=== PATIENT | male | born 1965 | race Caucasian/White ===

== ENCOUNTER 2021-10-28 09:05 | Outpatient (CLI) | payer BC, SELFPAY ==
[2021-10-28 20:02] LABS: Alanine Aminotransferase 28 U/L (6-50); Albumin Level 4.4 g/dL (3.5-5.1); Alkaline Phosphatase 60 U/L (38-126); Anion Gap 9 mmol/L (8-16); Aspartate Amino Transferase 40 U/L (17-59); Bilirubin,Total 0.8 mg/dL (0.2-1.3); Blood Urea Nitrogen 25 mg/dL (9-20); Calcium 9.1 mg/dL (8.4-10.2); Carbon Dioxide 29 mmol/L (22-30); Chloride 99 mmol/L (98-107); Cholesterol 160 mg/dL (0-200); Estimated Glomerular Filt Rate > 60; Glucose 102 mg/dL (65-110); HDL Direct 40 mg/dL; Potassium 4.1 mmol/L (3.4-5.0); Sodium 137 mmol/L (137-145); Triglycerides 92 mg/dL (<150)
[2021-10-28 20:13] LABS: LDL Cholesterol Direct 86 mg/dL
[2021-10-28 20:50] LABS: Hemoglobin A1C 5.3 % (<5.7)
== END 2021-10-28 09:06 | disposition home or self-care (01) ==
LOC: ANHGOSHLAB 09:08
PROVIDERS: PCP Family Medicine; Visit Provider Family Medicine
DX: Z13.220 Encounter for screening for lipoid disorders (principal); I10 Essential (primary) hypertension; E66.01 Morbid (severe) obesity due to excess calories
CPT/HCPCS: 36415; 80053; 80061; 83036

== ENCOUNTER 2022-05-05 09:57 | Outpatient (CLI) | payer BC, SELFPAY ==
[2022-05-05 19:42] LABS: Alanine Aminotransferase 34 U/L (6-50); Albumin Level 4.6 g/dL (3.5-5.1); Alkaline Phosphatase 74 U/L (38-126); Anion Gap 6 mmol/L (8-16); Aspartate Amino Transferase 39 U/L (17-59); Bilirubin,Total 0.9 mg/dL (0.2-1.3); Blood Urea Nitrogen 18 mg/dL (9-20); Calcium 8.8 mg/dL (8.4-10.2); Carbon Dioxide 27 mmol/L (22-30); Chloride 105 mmol/L (98-107); Cholesterol 174 mg/dL (0-200); Estimated Glomerular Filt Rate > 60; Glucose 104 mg/dL (65-110); HDL Direct 40 mg/dL; Potassium 4.1 mmol/L (3.4-5.0); Sodium 138 mmol/L (137-145); Triglycerides 158 mg/dL (<150)
[2022-05-05 19:52] LABS: LDL Cholesterol Direct 86 mg/dL
[2022-05-05 20:10] LABS: Prostate Specific Antigen 0.8 ng/mL (< OR = 4.0)
[2022-05-11 16:18] LABS: Testosterone Free 77.2 pg/mL (35.0-155.0); Testosterone Total 449 ng/dL (250-1100)
== END 2022-05-05 09:58 | disposition home or self-care (01) ==
LOC: ANHGOSHLAB 09:59
PROVIDERS: PCP Family Medicine; Visit Provider Family Medicine
DX: R53.83 Other fatigue (principal); Z13.220 Encounter for screening for lipoid disorders; I10 Essential (primary) hypertension; Z12.5 Encounter for screening for malignant neoplasm of prostate; Z00.00 Encounter for general adult medical examination without abnormal findings
CPT/HCPCS: 36415; 80053; 80061; 84153; 84402; 84403; G0103

== ENCOUNTER 2022-05-23 08:00 | Outpatient (NON) | payer BC, SELFPAY | END 2022-05-23 08:01 | disposition home or self-care (01) | LOC: ANHLAB 05-26 07:37 | PROVIDERS: PCP Family Medicine; Visit Provider Family Medicine | DX: L82.1 Other seborrheic keratosis (principal) | CPT/HCPCS: 88305 ==

== ENCOUNTER 2022-12-29 08:26 | Outpatient (CLI) | payer BC, SELFPAY ==
--- NOTE | 2023-01-20 14:06 | WPDHOMESLEEP ---
Sleep Study - Home Unattended Date of Study: 12/29/22 Ordering Provider: Randy Shabazz DO Interpreting Provider: Arin Lay DO Home Sleep Study Type: Watch PAT Height: 1.88 m Weight: 131.542 kg Body Mass Index: 37.2 Neck Circumference (inches): 19.5 [place]: 1 Reason for Sleep Study Elevated STOP BANG score Sleep History The patient is a 57-year-old male with hypertension and seasonal allergies that had a sleep study ordered by his primary care physician for evaluation of sleep apnea. The patient did not fill out the sleep questionnaire packet. [facility] Past Medical History Medical History Allergies Headache Hypertension Family History Family History Father Hypertension COPD (chronic obstructive pulmonary disease) Mother Asthma Hypertension Grandparent Alcoholism Social History Social History Smoking status: Never smoker Alcohol intake: current Alcohol use details: Whiskey, Beer Substance use: never Lack of Transportation: No Lack of Food: Never True Current Housing: I Have Housing Concerned About Future Housing: No Difficulty Paying Gas/Electric Bills: No Difficulty Paying for Meds: No Currently Unemployed: No Education: Decline to Answer Difficulty w/ Childcare or Family Care: No Living arrangements: with family Occupation/Education: occupation 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 Gender identity (if verbalized by the patient): Male Sexual Orientation (if Verbalized by the Patient): Straight or Heterosexual Spiritual care concerns: No Medications Home Medications Medication Instructions Recorded Confirmed Type aspirin 81 mg tablet,delayed 81 mg PO DAILY 05/05/22 11/04/22 History release multivitamin 1 tablet PO DAILY 05/05/22 11/04/22 History diltiazem HCl 420 mg capsule,24 420 mg PO DAILY #90 caps 10/02/22 11/04/22 Rx hr,extended release hydrochlorothiazide 25 mg tablet 25 mg PO DAILY #90 tabs 10/27/22 11/04/22 Rx cyclobenzaprine 10 mg tablet 10 mg PO TID #30 tabs 10/31/22 11/04/22 Rx Sleep Procedure The sleep study was completed using WatchPAT a technically adequate device with seven channels: peripheral arterial tone, actigraphy, body position, snore, respiratory movement, pulse oximetry, sleep staging, and heart rate. Prior to using the device, the patient received verbal and written instructions for its application and was provided with the help desk phone number for additional telephonic instruction with 24-hour availability of qualified personnel to answer questions. The study was scored using CMS guidelines. Sleep Architecture The patient had a total recording time of 8 hours 23 minutes and a total sleep time of 7 hours 50 minutes. The sleep efficiency was 93.35%. The sleep latency was 16 minutes and the REM latency was 111 minutes. The patient had 6 awakenings. The patient spent 64.05% of total sleep time in light sleep, 10.64% of total sleep time in deep sleep and 25.31% of total sleep time in REM sleep. The patient spent 4 minutes, 0.9% of total sleep time in the supine position. Respiratory Analysis The patient had an overall AHI of 13.6 and a central apnea index of 0.5. The REM AHI was 31.7. Giles Vick respirations were not seen. Oximetry Data The patient had an average oxygen saturation of 92% with a minimum of 81% and a maximum of 99%. The patient had 104 desaturations that were 4% or greater, resulting in an oxygen desaturation index of 13.6. The patient had 99 desaturations between 4-9% and 5 desaturations between 10-20%. The patient spent 6 minutes, 1.3% of total sleep time with an oxygen saturation below 88%. Snoring Profile Snoring was present throughout the entire study. Cardiac Profile The average pulse was 62
[2023-01-20 14:15] VITALS: BMI 37.2
== END 2023-01-01 11:28 | disposition home or self-care (01) ==
LOC: ANHCSM 08:27
PROVIDERS: PCP Family Medicine; Visit Provider Family Medicine
DX: G47.10 Hypersomnia, unspecified (principal); G47.33 Obstructive sleep apnea (adult) (pediatric)
CPT/HCPCS: 95800

== ENCOUNTER 2023-02-03 08:47 | Outpatient (CLI) | payer BC, SELFPAY ==
--- NOTE | ~2023-02-03 | XR_ITS ---
EXAMINATION: XR elbow LT min 3V DATE: 02/03/2023 09:07 INDICATION: Left elbow pain TECHNIQUE: Anteroposterior, two oblique and lateral views of the left elbow were obtained. COMPARISON: None. FINDINGS: Alignment is normal. No fracture or joint effusion. Joint spaces are normal. No erosions. Mild soft t issue swelling posterior to the olecranon. IMPRESSION: 1. Mild soft tissue swelling posterior to the olecranon which can be seen with bursitis. No left elbo w joint effusion or osseous abnormality. Reviewed, dictated and finalized at location A. UM OR ZOO DIRECTOR IMPRESSION: 1. Mild soft tissue swelling posterior to the olecranon which can be seen with bursitis. No left elbow joint effusion or osseous abnormality.
== END 2023-02-03 08:48 | disposition home or self-care (01) ==
PROVIDERS: PCP Family Medicine; Visit Provider Orthopaedic Surgery
DX: M25.522 Pain in left elbow (principal); M79.89 Other specified soft tissue disorders
CPT/HCPCS: 73080

== ENCOUNTER 2023-06-11 08:58 | Outpatient (CLI) | payer BC, SELFPAY ==
[2023-06-11 12:24] LABS: Alanine Aminotransferase 28 U/L (6-50); Albumin Level 4.4 g/dL (3.5-5.1); Alkaline Phosphatase 62 U/L (38-126); Anion Gap 5 mmol/L (4-12); Aspartate Amino Transferase 48 U/L (17-59); Bilirubin,Total 0.7 mg/dL (0.2-1.3); Blood Urea Nitrogen 19 mg/dL (9-20); Calcium 9.5 mg/dL (8.4-10.2); Carbon Dioxide 31 mmol/L (22-30); Chloride 102 mmol/L (98-107); Cholesterol 154 mg/dL (0-200); Estimated Glomerular Filt Rate > 60; Glucose 101 mg/dL (65-110); HDL Direct 36 mg/dL; Potassium 4.1 mmol/L (3.4-5.0); Sodium 138 mmol/L (137-145); Triglycerides 72 mg/dL (<150)
[2023-06-11 12:35] LABS: LDL Cholesterol Direct 95 mg/dL
[2023-06-11 12:54] LABS: Prostate Specific Antigen 1.1 ng/mL (< OR = 4.0)
== END 2023-06-11 08:59 | disposition home or self-care (01) ==
LOC: ANHGOSHLAB 08:59
PROVIDERS: PCP Family Medicine; Visit Provider Family Medicine
DX: Z13.228 Encounter for screening for other metabolic disorders (principal); Z13.220 Encounter for screening for lipoid disorders; Z12.5 Encounter for screening for malignant neoplasm of prostate
CPT/HCPCS: 36415; 80053; 80061; 84153; G0103

== ENCOUNTER 2024-06-02 14:02 | Outpatient (CLI) | payer BC, SELFPAY ==
--- OUTSIDE RECORDS SUMMARY | 2024-06-02 14:29 | XMS_ITS | Clinical Summary ---
Author Organization [facility] Address [address] [place] [id number] Phone Care Team Providers Care Chart Computer Name Role Phone Daniel Decker MD Primary Care Provider [phone] Allergies Active Allergy Reactions Criticality Noted Date Comments Codeine Other (See Comments) 02/20/2015 Abdominal cramping. Reaction: ABDOMINAL PAIN, , , Reaction: ABDOMINAL PAIN, Medications losartan-hydroCH LOROthiazide (HYZAAR) 50-12.5 mg tablet Take 1 Tablet by mouth. 9 Active metroNIDAZOLE (METROGEL) 1 % Gel 1 %. 5 Active methylPREDNISolo ne (MEDROL DOSPACK) 4 mg Tablets, Dose PackIndications: Acute bronchitis, unspecified organism Take as directed 21 Tablet 9 Active fluticasone propionate (FLONASE) 50 mcg/spray [place], Suspension nasal inhalerIndicatio ns:Acute bronchitis, unspecified organism Administer 2 Sprays in each nostril daily. 16 Gram 9 Active dextromethorphan -guaiFENesin (MUCINEX DM) 30-600 mg Tablet Sustained Release 12HRIndications: Acute bronchitis, unspecified organism Take 1 Tablet by mouth every 12 hours. 9 Active Active Problems Problem Noted Date Diagnosed Date Elevated blood pressure (not hypertension) 02/20 Social History Tobacco Use Types Packs/Day Years Used Date Smoking Tobacco: Every Day Cigarettes Smokeless Tobacco: Former Quit: 09/01/2009 Alcohol Use Standard Drinks/Week Comments Yes 0 (1 standard drink = 0.6 oz pur e alcohol) socially Sex and Gender Information Value Date Recorded Sex Assigned at Not on file Legal Sex Male 4:48 PM 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 Gender Identity Not on file Sexual Orientation Not on file Last Filed Vital Signs Vital Sign Reading Time Taken Comments Blood Pressure 135/98 02/22/2019 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 Pulse 86 02/22/2019 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 Temperature 36.7 C (98.1 F) 02/22/2019 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 Respiratory Rate 16 02/22/2019 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 Oxygen Saturation 96% 02/22/2019 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 Inhaled Oxygen Concentration - - Weight - - Height - - Body Mass Index - - Plan of Treatment Health Maintenance Due Date Last Done Comments PNEUMOCOCCAL VACCINE 0-49 YEARS (1 of 2 - PCV) 971 HEPATITIS B VACCINES (1 of 3 - 19+ 3-dose series) 10/14 COLORECTAL SCREENING 2009 Colorectal Cancer Screening 2009 FIT-DNA Q 3 years 2009 FIT/FOBT Q 1 year 2009 Flex Sig/CT Colonography Q 5 years 2009 ZOSTER VACCINE (1 of 2) 2014 INFLUENZA VACCINE (#1) 2023 DTAP/TDAP/TD VACCINES (2 - Td or Tdap) 11/19/[address] [place] [address] [place] [address] BLUE ACCESS CHOICE Care Teams Chart Computer Relationship Specialty Start Date End Date Daniel Decker MD [address] [place] [address] PCP - General Internal Medicine 12/8/15
--- OUTSIDE RECORDS SUMMARY | 2024-06-02 14:29 | XMS_ITS | Referral Summary ---
Author Organization [facility] [address] Address [address] [place] [address] Phone Care Team Providers Care Manager Assurance Name Role Phone Unknown, Notinfile Primary Care Provider Unavail able Allergies Active Allergy Reactions Criticality Noted Date Comments Codeine Other (See comments) Reaction: ABDOMINAL PAIN, , , Reaction: ABDOMINAL PAIN, Losartan Anaphylaxis High 05/23/2020 Medications metroNIDAZOLE (METROGEL) 1 % gel apply by topical route every day to the affected area(s) ; rub in gently and completely 1 Tube 1 5 Active rOPINIRole (REQUIP) 1 mg tablet TAKE 1 TABLET BY MOUTH EVERY NIGHT AT BEDTIME 30 tablet 2 8 Active Additional Information Patient not taking.Reported on 05/23/2020 EPINEPHrine (EpiPen) 0.3 mg/0.3 mL auto-injection syringeIndicatio ns:Anaphylaxis Inject 0.3 mL (0.3 mg total) into the muscle as instructed as needed for anaphylaxis (MOUTH SWELLING, DIFFICULTY BREATHING) 2 each 0 Active spironolactone (ALDACTONE) 25 mg tabletIndication s:Essential hypertension Take 1 tablet (25 mg total) by mouth daily 90 tablet 3 1 Active dilTIAZem CD (CARDIZEM CD) 300 mg 24 hr capsuleIndicatio ns:hypertension Take 1 capsule (300 mg total) by mouth daily 90 capsule 2 1 Active hydroCHLOROthiaz arabella (HYDRODIURIL) 25 mg tablet Take 1 tablet (25 mg total) by mouth daily 90 tablet 1 1 Active diltiazem (TIAZAC) 120 mg 24 hr capsule Take 1 capsule (120 mg total) by mouth daily 90 capsule 1 1 Active Active Problems Problem Noted Date Diagnosed Date Personal history of COVID-19 11/22/2020 Assessment & Plan (11/22/2020 5:16 PM CDT): Patient is of the opinion he has COVID long haul. 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 . No respiratory problems has a little bit of fatigue. Advised patient's in the next year he may see some request a information for people to participate studies regarding COVID Long haul Results and he may want to participate. Other hyperlipidemia 07/18/2020 Assessment & Plan (07/18/2020 11:42 AM CDT): Lipid profile reviewed results in therapeutic range. COVID-19 virus detected 03/29/2020 Assessment & Plan (07/18/2020 11:39 AM CDT): Patient 95% recovery from COVID . His is impression he is a little bit of COVID fog some things he is not remembering right as well as he used to. Shortness of breath no energy issues in terms of fatigue. Assessment & Plan (03/29/2020 11:38 AM YOUTUBER): Patient is reporting chills, body aches, fatigue and congestion. Rapid COVID-19 testing was positive. We discussed symptom management with tylenol for pain or fevers. He is to rest and increase fluids. Can continue sinus care with saline rinses and Mucinex. He was also referred for evaluation of monoclonal antibodies at the [facility] prompt [facility]. He is to call with any further issues or concerns. Cough 03/29/2020 Assessment & Plan (03/29/2020 11:36 AM YOUTUBER): Patient is reporting cough with blood tinged sputum, most likely secondary to his COVID-19. We will do CXR to r/o underlying pneumonia. Labs to be completed as well. Benign positional vertigo, left 04/15/2019 Assessment & Plan (04/15/2019 2:53 PM YOUTUBER): Patient presents with symptoms consistent with BPV. He has feelings as though the room is spinning worse with turning head to the left and when standing. We will send to physical therapy for vestibular therapy. He is to call is symptoms worsen or persist Chronic low back pain 11/19/2018 Assessment & Plan (11/22/2020 5:20 PM CDT): Patient having some back pain use Tylenol And morning stretches. Increased pain over the past few days. Assessment & Plan (11/19/2018 5:13 PM CDT): Patient's chronic low back pain greater than 20 years is an accident 23 years ago had a fractured vertebrae. At this time he is not interested return to a pain clinic are in getting any new medications.. A 10 years ago he had injections in his back to did help him some. Class 2 obesity in adult 05/30/2018 Assessment & Plan (11/19/2018 5:14 PM CDT): Patient's weight is unchanged from previous visit. Assessment & Plan (05/30/2018 4:41 PM CDT): Patient lost 55 lb in the past year with lifestyle changes. Dizziness intention lose approximately the 30 lb. Colon cancer screening 08/21/2017 Overview (08/21/2017): Added automatically from request for surgery [id number] Assessment & Plan (11/22/2020 5:17 PM CDT): Patient had a negative DNA Cologuard study November 2018 Annual physical exam 08/13/2017 Assessment & Plan (09/30/2019 3:03 PM CDT): History and physical completed health risk assessment health maintenance reviewed in addressed. Patient is doing very well.. He did cancel some weight during the COVID-19 working out of home. PSA requested. Assessment & Plan (11/19/2018 5:12 PM CDT): Patient's annual exam completed health risk assessment health maintenance reviewed. DNA colon Guard requested lipid profile CBC and basic metabolic profile related to his hypertension. Patient has noticed hearing loss as well as tinnitus will get a audiology exam.. Patient's chronic back pain does physical therapy at times to help him he is not interested in any further treatment all modalities of his back pain at this time. Assessment & Plan (08/13/2017 6:18 PM CDT): Patient's annual exam he has lost 40 lb since his last visit with me. He feels well no particular problems at this time other than sciatica. He has had sciatica and back pain for 20+ years here times in his 5 very bothersome to him at this time he is doing well. He injections in his back many years ago with partial relief. And he has done physical therapy in nose exercises to do. On today's date he is getting update on his lab BMP, lipid profile PSA patient will be referred for colonoscopy. Restless leg syndrome, controlled 02/14/2017 Assessment & Plan (09/30/2019 3:03 PM CDT): Symptoms of remain well control no change in therapy Assessment & Plan (11/19/2018 5:14 PM CDT): S this lady remains well control no change in therapy. Assessment & Plan (05/30/2018 4:38 PM CDT): Restless leg symptoms well control repeat Inderal. Assessment & Plan (08/13/2017 6:17 PM CDT): Restless leg syndrome control no change in therapy. Assessment & Plan (02/14/2017 4:26 PM YOUTUBER): Repeat Inderal peers to control his restless leg syndrome reasonably well no change in therapy at this time. We discussed other medications have equal side effects. Essential hypertension 07/30/2013 Overview (06/02/2020): Assessment & Plan (11/22/2020 5:14 PM CDT): Blood pressure remains very well control on diltiazem 420 mg daily. Patient did reduce his blood pressure back down to 360 mg of diltiazem within a few days he noticed his blood pressure begin rise again. He is accepted that the 420 mg which is a large dose is what he needs. He is no symptoms with this dose. No change in therapy Assessment & Plan (08/14/2020 5:41 PM CDT): Patient's blood pressures been as low as 100/70 he felt well at this level he has noticed when his blood pressure gets above 145 systolic above 100 diastolic he has a distinct headache in the left temporal area. He has learned that if he takes the hydrochlorothiazide this will bring his blood pressure down in headache resolves.. Spironolactone does not work as well. This time will continue to monitor his blood pressure. Patient advised me when he has edema the hydrochlorothiazide will refer reduce edema when spironolactone would not.esume hydrochlorothiazide on a p.r.n. basis.. Hydrochlorothiazide left over from previous prescription was out of it we did resume it today. Assessment & Plan (07/18/2020 11:41 AM CDT): Patient's diastolic blood pressure remains above 90 consistently 100. However he took 420 mg of diltiazem and status up blood pressure was excellent. At this time he has a combination of diltiazem tablets 300 mg, 240 mg and 120 mg. Plans at maintain this patient on diltiazem 420 mg per day it talked about the side effect of constipation . Patient will let us know when he needs refill. Patient's renal functions are very good. Assessment & Plan (06/02/2020 6:29 PM CDT): Hypertension not controlled at this time however patient does report blood pressure readings throughout the day that improved over the reading at the time of this visit advised patient continue to monitor his blood pressure readings. Patient was taking off losartan last visit because of angioedema. Patient's recently started on spironolactone which we may not be seen therapeutic benefit since his it been less than 2 weeks on his medication. Again recommend patient monitor his blood pressure gives a progress report.. No symptoms referable to hypertension this time. Assessment & Plan (05/23/2020 4:11 PM YOUTUBER): Patient presents with reports of elevated blood pressure and headache for the last 5 days. He was started on cardizem recently and his losartan was stopped secondary to an angioedema like reaction. He reports well controlled BP on losartan, however, since transition BP has been gradually rising and he is now having SBP 150-170 and DBP in the 90s. He has also had a 9lb weight gain since his last visit. He has some headaches, but no associated chest pain, weakness, asymmetry or shortness of breath. Given this we will add aldactone 25mg daily to his regimen. He will continue to monitor BP. He is to go to the ER with any uncontrolled BP, persistent headaches, visual changes, weakness, chest pain or shortness of breath. He will follow up in one week with Dr. Decker or sooner if needed. Will update BMP in 4-6 weeks to evaluate renal function and potassium with addition of diuretic. Assessment & Plan (03/12/2020 6:37 PM YOUTUBER): Blood pressure is well controlled however him discontinue losartan because of potential that this is causing angioedema or allergic reaction. I will start this gentleman diltiazem 240 mg daily. See him back in 1-2 months for blood pressure control issues. Patient monitor his blood pressure closely at home as a routine pattern. Assessment & Plan (09/30/2019 3:02 PM CDT): Hypertension well controlled continue present medications no change in therapy. Update lipid profile in BMP today Assessment & Plan (11/19/2018 5:13 PM CDT): Hypertension very well controlled no change in therapy continue present medications. Assessment & Plan (05/30/2018 4:40 PM CDT): Patient has lost about 55 lb in the past year on purpose with lifestyle changes.. Patient's blood pressure is sometimes a dropped low and he did feel well this time adjustments in medications will be made by reducing his losartan from 100/12.5 to 50/12.5. Patient will continue to monitor his blood pressure and correlate with symptoms. . Assessment & Plan (08/13/2017 6:17 PM CDT): Hypertension is improving with lifestyle modifications. Continue current treatment regimen. Dietary sodium restriction. Weight loss. Regular aerobic exercise. Blood pressure will be reassessed at the next regular appointment. Patient has lost 40 lb in the past year through lifestyle changes. Assessment & Plan (02/14/2017 4:25 PM YOUTUBER): Hypertension is unchanged. Continue current treatment regimen. Dietary sodium restriction. Weight loss. Regular aerobic exercise. Continue current medications. Blood pressure will be reassessed at the next regular appointment. Patient blood pressures continues to be well controlled. He is losing weight working out changes diet. High-protein low carb diet. He is down 35 pounds since his last visit. Resolved Problems Problem Noted Date Diagnosed Date Resolved Date Epistaxis 03/29/2020 07/18/2020 Assessment & Plan (03/29/2020 11:11 AM YOUTUBER): Patient is reporting epistaxis with resultant bloody sputum. Most likely secondary to sinus irritation. He is able to control on his own. We will however, do CBC and PT/INR to evaluate for any thrombocytopenia or coagulopathy. Discussed use of saline nasal spray for moisture and to go to ER with any unresolved bleeding. Angio-edema 03/12/2020 11/22/2020 Assessment & Plan (03/12/2020 6:36 PM YOUTUBER): Patient's since January 14 has had 2 emergency room visits for angioedema. On these to visits he begin have swelling inside his mouth in addition to around his lips.. The last visit he was beginning feel little short of breath.. On the non emergency room visits this swelling was limited to his face and lips but not inside of his mouth. The frequency these symptoms seem to be increasing. Patient was given EpiPen prescription in the ER which he as filled. I have discontinued losartan she has a potential cause of the this problem even though he has been on losartan for years. Patient does not identify any fatigue no changes in his lifestyle exposure. Given this patient's increasing frequency of facial swelling lips and swelling inside of his mouth referring him to an multisensor intelligence officer. Immunizations Immunization Administration Dates Next Due Tdap 11/19/2018 Social History Tobacco Use Types Packs/Day Years Used Date Smoking Tobacco: Former Smokeless Tobacco: Never Tobacco Cessation:Counseling Given: No PHQ-2 Answer Date Recorded PHQ-2 Total Score (If total score is 3 or more points, staff should administer the PHQ-9) 0 03/12/2020 Sex and Gender Information Value Date Recorded Sex Assigned at Not on file Legal Sex Male 1:08 PM YOUTUBER Gender Identity Not on file Sexual Orientation Not on file Last Filed Vital Signs Vital Sign Reading Time Taken Comments Blood Pressure 104/80 11/22/2020 8:57 AM CDT Pulse 84 11/22/2020 8:57 AM CDT Temperature 36.2 C (97.1 F) 11/22/2020 8:57 AM CDT Respiratory Rate 16 11/22/2020 8:57 AM CDT Oxygen Saturation 98% 11/22/2020 8:57 AM CDT Inhaled Oxygen Concentration - - Weight 138.3 kg (305 lb) 11/22/2020 8:57 AM CDT Height 190.5 cm (6' 3 ) 11/22/2020 8:57 AM CDT Body Mass Index 38.12 11/22/2020 8:57 AM CDT Plan of Treatment Not on file Insurance [employer] [facility] CHOICE [facility]OS Care Teams Manager Assurance Relationship Specialty Start Date End Date Unknown, Notinfile PCP - General 05/30/21
--- OUTSIDE RECORDS SUMMARY | 2024-06-02 14:30 | XMS_ITS | Clinical Summary ---
Author Organization [facility] [address] Address [address] [place] [address] Phone Care Team Providers Care Whey Department Operator Name Role Phone Unknown, Notinfile Primary Care [...] fatigue. Assessment & Plan (03/29/2020 11:38 AM CONSTRUCTION DIRECTOR): Patient is reporting chills, body aches, fatigue [...] 03/29/2020 Assessment & Plan (03/29/2020 11:36 AM CONSTRUCTION DIRECTOR): Patient is reporting cough with blood tinged sputum, most likely secondary to his COVID-19. We will do CXR to r/o underlying pneumonia. Labs to be completed as well. Benign positional vertigo, left 04/15/2019 Assessment & Plan (04/15/2019 2:53 PM CONSTRUCTION DIRECTOR): Patient presents with symptoms consistent with BPV. [...] (08/21/2017): Added automatically from request for surgery [id number] Assessment & Plan (11/22/2020 5:17 PM CDT): [...] therapy. Assessment & Plan (02/14/2017 4:26 PM CONSTRUCTION DIRECTOR): Repeat Inderal peers to control his restless [...] time. Assessment & Plan (05/23/2020 4:11 PM CONSTRUCTION DIRECTOR): Patient presents with reports of elevated blood [...] diuretic. Assessment & Plan (03/12/2020 6:37 PM CONSTRUCTION DIRECTOR): Blood pressure is well controlled however him [...] changes. Assessment & Plan (02/14/2017 4:25 PM CONSTRUCTION DIRECTOR): Hypertension is unchanged. Continue current treatment regimen. [...] 07/18/2020 Assessment & Plan (03/29/2020 11:11 AM CONSTRUCTION DIRECTOR): Patient is reporting epistaxis with resultant bloody sputum. Most likely secondary to sinus irritation. He is able to control on his own. We will however, do CBC and PT/INR to evaluate for any thrombocytopenia or coagulopathy. Discussed use of saline nasal spray for moisture and to go to ER with any unresolved bleeding. Angio-edema 03/12/2020 11/22/2020 Assessment & Plan (03/12/2020 6:36 PM CONSTRUCTION DIRECTOR): Patient's since January 14 has had 2 [...] of his mouth referring him to an marketing effectiveness manager. Immunizations Immunization Administration Dates Next Due Tdap 11/19/2018 Surgical History Surgery Date Site/Laterality Comments OTHER SURGICAL HISTORY 1990 adenomatous polyps: removed @ colonoscopy Medical History Medical History Date Comments Hx Other Medical adenomatous aguilar yps Family History Relation Name Status Comments Maternal Grandfather (Age 65) Social History Tobacco Use Types Packs/Day Years Used Date Smoking Tobacco: Former Smokeless Tobacco: Never Tobacco Cessation:Counseling Given: No PHQ-2 Answer Date Recorded PHQ-2 Total Score (If total score is 3 or more points, staff should administer the PHQ-9) 0 03/12/2020 Sex and Gender Information Value Date Recorded Sex Assigned at Not on file Legal Sex Male 1:08 PM CONSTRUCTION DIRECTOR Gender Identity Not on file Sexual Orientation Not on file Obstetrics History Last Filed Vital Signs Vital Sign Reading [...] Plan of Treatment Not on file Insurance [facility] CHOICE OOS Care Teams Whey Department Operator Relationship Specialty Start Date End Date Unknown, Notinfile PCP - General 05/30/21
[2024-06-02 19:55] LABS: Basophils Absolute Auto 0.1 K/mm3 (0.0-0.1); Basophils Percent Auto 1.2 % (0.2-1.2); Eosinophils Absolute Auto 0.2 K/mm3 (0-0.3); Hematocrit 45.7 % (42.0-52.0); Hemoglobin 14.8 g/dL (14.0-18.0); Immature Granulocyte Absolute 0.03 K/mm3 (0.00-0.031); Immature Granulocyte Percent A 0.4 % (0-0.5); Lymphocytes Percent Auto 23.2 % (18.3-44.2); Mean Corpuscular HGB Conc 32.4 g/dl (32-36); Mean Corpuscular Hemoglobin 31.3 pg (26-34); Mean Corpuscular Volume 96.6 fl (80-100); Mean Platelet Volume 10.2 fl (7.4-10.4); Monocytes Absolute Auto 0.6 K/mm3 (0.1-0.6); Monocytes Percent Auto 7.2 % (2.6-8.5); Neutrophils Absolute Auto 5.1 K/mm3 (1.3-6.7); Platelet Count Result 290 k/mm3 (150-375); Red Blood Count 4.73 M/mm3 (4.6-6.20); Red Cell Distribution Width 12.8 % (11.5-14.5); White Blood Count 7.8 K/mm3 (4.5-10.0)
[2024-06-02 20:43] LABS: LDL Cholesterol Direct 86 mg/dL
[2024-06-02 20:54] LABS: Alanine Aminotransferase 31 U/L (6-50); Albumin Level 4.8 g/dL (3.5-5.1); Alkaline Phosphatase 58 U/L (38-126); Aspartate Amino Transferase 46 U/L (17-59); Bilirubin,Total 0.8 mg/dL (0.2-1.3); Blood Urea Nitrogen 24 mg/dL (9-20); Carbon Dioxide 31 mmol/L (22-30); Cholesterol 162 mg/dL (0-200); Estimated Glomerular Filt Rate 57; Glucose 84 mg/dL (65-110); Triglycerides 99 mg/dL (<150)
[2024-06-02 21:01] LABS: Prostate Specific Antigen 0.9 ng/mL (< OR = 4.0)
[2024-06-02 22:14] LABS: Anion Gap 9 mmol/L (4-12); Calcium 9.4 mg/dL (8.4-10.2); Chloride 101 mmol/L (98-107); HDL Direct 47 mg/dL; Potassium 4.2 mmol/L (3.4-5.0); Sodium 141 mmol/L (137-145)
== END 2024-06-02 14:03 | disposition home or self-care (01) ==
LOC: ANHGOSHLAB 14:03
PROVIDERS: PCP Internal Medicine; Visit Provider Clinical Nurse Specialist
DX: Z13.228 Encounter for screening for other metabolic disorders (principal); I10 Essential (primary) hypertension; Z12.5 Encounter for screening for malignant neoplasm of prostate
CPT/HCPCS: 36415; 80053; 80061; 84153; 85025; G0103

== ENCOUNTER 2024-06-28 10:38 | Outpatient (CLI) | payer BC, SELFPAY ==
--- OUTSIDE RECORDS SUMMARY | 2024-06-28 11:46 | XMS_ITS | Clinical Summary ---
Author Organization [facility] Address [address] [place] [phone] Phone Care Team Providers Care Environmental Protection Economist Name Role Phone Daniel Decker MD Primary Care Provider [phone] Allergies Active Allergy Reactions Criticality Noted Date [...] 9 Active fluticasone propionate (FLONASE) 50 mcg/spray Rogers, Suspension nasal inhalerIndicatio ns:Acute bronchitis, unspecified organism [...] on file Legal Sex Male 4:48 PM DISC RECORDIST Gender Identity Not on file Sexual Orientation Not on file Last Filed Vital Signs Vital Sign Reading Time Taken Comments Blood Pressure 135/98 02/22/2019 8:53 AM DISC RECORDIST Pulse 86 02/22/2019 8:53 AM DISC RECORDIST Temperature 36.7 C (98.1 F) 02/22/2019 8:53 AM DISC RECORDIST Respiratory Rate 16 02/22/2019 8:53 AM DISC RECORDIST Oxygen Saturation 96% 02/22/2019 8:53 AM DISC RECORDIST Inhaled Oxygen Concentration - - Weight - [...] (2 - Td or Tdap) 11/19/[address] [place] [address] [place] [address] BLUE ACCESS CHOICE Care Teams Environmental Protection Economist Relationship Specialty Start Date End Date Daniel Decker MD [address] [place] [address] PCP - General Internal Medicine 12/8/15
--- OUTSIDE RECORDS SUMMARY | 2024-06-28 11:46 | XMS_ITS | Clinical Summary ---
Author Organization [facility] [address] Address [address] [place] [address] Phone Care Team Providers Care Coordinator Of Evaluation Name Role Phone Unknown, Notinfile Primary Care [...] fatigue. Assessment & Plan (03/29/2020 11:38 AM TETRYL DISSOLVER OPERATOR): Patient is reporting chills, body aches, fatigue [...] 03/29/2020 Assessment & Plan (03/29/2020 11:36 AM TETRYL DISSOLVER OPERATOR): Patient is reporting cough with blood tinged sputum, most likely secondary to his COVID-19. We will do CXR to r/o underlying pneumonia. Labs to be completed as well. Benign positional vertigo, left 04/15/2019 Assessment & Plan (04/15/2019 2:53 PM TETRYL DISSOLVER OPERATOR): Patient presents with symptoms consistent with BPV. [...] (08/21/2017): Added automatically from request for surgery [id number] Assessment & Plan (11/22/2020 5:17 PM CDT): [...] therapy. Assessment & Plan (02/14/2017 4:26 PM TETRYL DISSOLVER OPERATOR): Repeat Inderal peers to control his restless [...] time. Assessment & Plan (05/23/2020 4:11 PM TETRYL DISSOLVER OPERATOR): Patient presents with reports of elevated blood [...] diuretic. Assessment & Plan (03/12/2020 6:37 PM TETRYL DISSOLVER OPERATOR): Blood pressure is well controlled however him [...] changes. Assessment & Plan (02/14/2017 4:25 PM TETRYL DISSOLVER OPERATOR): Hypertension is unchanged. Continue current treatment regimen. [...] 07/18/2020 Assessment & Plan (03/29/2020 11:11 AM TETRYL DISSOLVER OPERATOR): Patient is reporting epistaxis with resultant bloody sputum. Most likely secondary to sinus irritation. He is able to control on his own. We will however, do CBC and PT/INR to evaluate for any thrombocytopenia or coagulopathy. Discussed use of saline nasal spray for moisture and to go to ER with any unresolved bleeding. Angio-edema 03/12/2020 11/22/2020 Assessment & Plan (03/12/2020 6:36 PM TETRYL DISSOLVER OPERATOR): Patient's since January 14 has had 2 [...] of his mouth referring him to an marine specialist. Immunizations Immunization Administration Dates Next Due Tdap [...] on file Legal Sex Male 1:08 PM TETRYL DISSOLVER OPERATOR Gender Identity Not on file Sexual Orientation [...] 8:57 AM CDT Height 190.5 cm (6' 3) 11/22/2020 8:57 AM CDT Body Mass Index 38.12 11/22/2020 8:57 AM CDT Plan of Treatment Not on file Insurance [facility] CHOICE OOS Care Teams Coordinator Of Evaluation Relationship Specialty Start Date End Date Unknown, Notinfile PCP - General 05/30/21
--- OUTSIDE RECORDS SUMMARY | 2024-06-28 11:46 | XMS_ITS | Referral Summary ---
Author Organization [facility] [address] Address [address] [place] [address] Phone Care Team Providers Care Supervisor Asphalt Paving Name Role Phone Unknown, Notinfile Primary Care [...] fatigue. Assessment & Plan (03/29/2020 11:38 AM COMPUTER NETWORK SPECIALIST): Patient is reporting chills, body aches, fatigue [...] 03/29/2020 Assessment & Plan (03/29/2020 11:36 AM COMPUTER NETWORK SPECIALIST): Patient is reporting cough with blood tinged sputum, most likely secondary to his COVID-19. We will do CXR to r/o underlying pneumonia. Labs to be completed as well. Benign positional vertigo, left 04/15/2019 Assessment & Plan (04/15/2019 2:53 PM COMPUTER NETWORK SPECIALIST): Patient presents with symptoms consistent with BPV. [...] (08/21/2017): Added automatically from request for surgery [id number] Assessment & Plan (11/22/2020 5:17 PM CDT): [...] therapy. Assessment & Plan (02/14/2017 4:26 PM COMPUTER NETWORK SPECIALIST): Repeat Inderal peers to control his restless [...] time. Assessment & Plan (05/23/2020 4:11 PM COMPUTER NETWORK SPECIALIST): Patient presents with reports of elevated blood [...] diuretic. Assessment & Plan (03/12/2020 6:37 PM COMPUTER NETWORK SPECIALIST): Blood pressure is well controlled however him [...] changes. Assessment & Plan (02/14/2017 4:25 PM COMPUTER NETWORK SPECIALIST): Hypertension is unchanged. Continue current treatment regimen. [...] 07/18/2020 Assessment & Plan (03/29/2020 11:11 AM COMPUTER NETWORK SPECIALIST): Patient is reporting epistaxis with resultant bloody sputum. Most likely secondary to sinus irritation. He is able to control on his own. We will however, do CBC and PT/INR to evaluate for any thrombocytopenia or coagulopathy. Discussed use of saline nasal spray for moisture and to go to ER with any unresolved bleeding. Angio-edema 03/12/2020 11/22/2020 Assessment & Plan (03/12/2020 6:36 PM COMPUTER NETWORK SPECIALIST): Patient's since January 14 has had 2 [...] of his mouth referring him to an consultant education. Immunizations Immunization Administration Dates Next Due Tdap [...] on file Legal Sex Male 1:08 PM COMPUTER NETWORK SPECIALIST Gender Identity Not on file Sexual Orientation [...] of Treatment Not on file Insurance [employer] [facility] CHOICE OOS Care Teams Supervisor Asphalt Paving Relationship Specialty Start Date End Date Unknown, Notinfile PCP - General 05/30/21
[2024-06-28 18:50] LABS: Anion Gap 7 mmol/L (4-12); Blood Urea Nitrogen 22 mg/dL (9-20); Calcium 8.8 mg/dL (8.4-10.2); Carbon Dioxide 29 mmol/L (22-30); Chloride 102 mmol/L (98-107); Estimated Glomerular Filt Rate > 60; Glucose 95 mg/dL (65-110); Potassium 4.7 mmol/L (3.4-5.0); Sodium 138 mmol/L (137-145)
[2024-06-28 19:13] LABS: Hemoglobin A1C 5.4 % (<5.7)
== END 2024-06-28 10:39 | disposition home or self-care (01) ==
LOC: ANHGOSHLAB 10:39
PROVIDERS: PCP Internal Medicine; Visit Provider Clinical Nurse Specialist
DX: R94.4 Abnormal results of kidney function studies (principal); I10 Essential (primary) hypertension; Z13.228 Encounter for screening for other metabolic disorders; R79.9 Abnormal finding of blood chemistry, unspecified; G47.33 Obstructive sleep apnea (adult) (pediatric); Z13.1 Encounter for screening for diabetes mellitus
CPT/HCPCS: 36415; 80048; 83036

== ENCOUNTER 2025-01-30 08:03 | Emergency (ER) | payer BC, SELFPAY ==
[2025-01-30 08:08] VITALS: BP 128/82; PULSE 76; RESP 20; TEMP 36.6; O2SAT 100
--- NOTE | 2025-01-30 08:32 | ED_ITS ---
HPI - General Adult General Chief complaint: Unspecified Stated complaint: Swollen Lip Time Seen by Provider: 01/30/25 08:15 Source: patient and RN notes reviewed Mode of arrival: ambulatory Limitations: no limitations History of Present Illness HPI narrative: 59-year-old male patient presents to the [facility] complaining of upper lip swelling it started yesterday. Patient said the swelling has improved today, he took some loratadine yesterday without any relief. Patient reports history of angioedema from losartan, as a been on this medication for least 3 years, he does not take any other Richie inhibitors or arbs or any medication similar. Denies any changes to medications. Patient denies any swelling to the rest of his face, throat swelling, difficulty clearing secretions, breathing problems, wheezing, nausea, vomiting, hives, rash, itchiness, or any other symptoms. Patient denies any other significant past medical history. Related Data Home Medications ?Medication ?Instructions ?Recorded ?Confirmed ?Last Taken ?Type aspirin 81 mg tablet,delayed 81 mg PO DAILY 05/05/22 0 12/08/24 Unknown History release multivitamin 1 tablet PO DAILY 05/05/22 0 12/08/24 Unknown History Allergies Allergy/AdvReac Type Severity Reaction Status Date / Time codeine Allergy Intermediate Stomach Verified 01/30/25 08:25 Cramps losartan Allergy Intermediate Facial Verified 01/30/25 08:25 Edema Review of Systems Review of Systems: CONSTITUTIONAL: Denies fever, chills, or sweats. EYES: Denies visual changes, redness, or discharge. ENT: Denies rhinorrhea, congestion, sore throat, or otalgia. CARDIOVASCULAR: Denies chest pain, palpitations, or edema. RESPIRATORY: Denies cough or dyspnea. GASTROINTESTINAL: Denies abdominal pain, nausea, vomiting, or diarrhea. GENITOURINARY: Denies dysuria or hematuria. SKIN: Denies rash or itching. Positive for lip swelling. MUSCULOSKELETAL: Denies back pain, joint pain, or myalgia. NEUROLOGIC: Denies headache, numbness, or weakness. PSYCHIATRIC: Denies anxiety or depression. All other systems reviewed are negative, except as documented in HPI. [facility] Past Medical History Medical History Back Pain Syncope Vasovagal syncope Hypertension Headache Allergies Family History Family History Father Hypertension COPD (chronic obstructive pulmonary disease) Mother Asthma Hypertension Grandparent Alcoholism Social History Social History Smoking status: Never smoker Alcohol intake: current Alcohol use details: Whiskey, Beer Substance use: never Lack of Transportation: No Lack of Food: Never True Current Housing: I Have Housing Concerned About Future Housing: No Difficulty Paying Gas/Electric Bills: No Difficulty Paying for Meds: No Currently Unemployed: No Education: Decline to Answer Difficulty w/ Childcare or Family Care: No Living arrangements: with family Occupation/Education: occupation 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 There is no relevant family history pertinent to the patient complaint. Exam Narrative: GENERAL: This is a well-nourished, well-developed adult, in no apparent distress. They are non ill-appearing, nontoxic appearing. HEAD: normocephalic, atraumatic. EYES: Sclera clear/white. Conjunctiva normal. Vision is grossly intact. Ext raocular movements intact EARS: External ears normal, Hearing grossly intact. NOSE: External nose normal THROAT: Mucous membranes moist, posterior pharynx clear, without erythema or swelling. Uvula midline. OROPHARYNX: Teeth intact. No gross tooth decay. Tongue midline. Tongue without swelling. Upper lip is edematous and nontender to palpate. Lower lip normal. NECK: Neck supple, non-tender without lymphadenopathy, masses or thyromegaly. CARDIOVASCULAR: Regular rate and rhythm without murmurs, gallops, or rubs. RESPIRATORY: Clear to auscultation. Breath sounds equal bilaterally. No wheezes, rales, or rhonchi. SKIN: warm, Dry, intact with no suspicious lesions or rash, good texture and turgor. NEURO: awake, alert, and oriented to person, place and time. There were no obvious focal neurologic abnormalities. EXTREMITIES: No joint tenderness, effusion, or edema noted. BACK: Nontender without deformity. Course Course Emergency Course: Portions of this record may have been created with voice recognition software Level of Care: Express Care Visit Vital Signs Vital signs: Vital Signs Temperature 97.8 F 01/30/25 08:08 Pulse Rate 76 01/30/25 08:08 Respiratory Rate 20 01/30/25 08:08 Blood Pressure 128/82 01/30/25 08:08 Pulse Oximetry 100 01/30/25 08:08 Oxygen Delivery Room Air 01/30/25 08:08 Temperature 97.8 F 01/30/25 08:08 Pulse Rate 76 01/30/25 08:08 Respiratory Rate 20 01/30/25 08:08 Blood Pressure 128/82 01/30/25 08:08 Pulse Oximetry 100 01/30/25 08:08 Oxygen Delivery Room Air 01/30/25 08:08 Reviewed Medical Decision Making MDM Narrative Medical decision making narrative: Upper lip is edematous. Unclear what causes reaction, no evidence of anaphylaxis or angioedema. Will treat with prednisone. Discussed physical exam findings. Advised supportive measures and signs/symptoms to go to the ER. Pt is appropriate for outpt treatment and f/u. Differential Diagnosis Differential Diagnosis: Angioedema, allergic reaction, lip swelling, medication reaction Vital Signs Vital Signs: Vital Signs Temperature 97.8 F 01/30/25 08:08 Pulse Rate 76 01/30/25 08:08 Respiratory Rate 20 01/30/25 08:08 Blood Pressure 128/82 01/30/25 08:08 Pulse Oximetry 100 01/30/25 08:08 Oxygen Delivery Room Air 01/30/25 08:08 Temperature 97.8 F 01/30/25 08:08 Pulse Rate 76 01/30/25 08:08 Respiratory Rate 20 01/30/25 08:08 Blood Pressure 128/82 01/30/25 08:08 Pulse Oximetry 100 01/30/25 08:08 Oxygen Delivery Room Air 01/30/25 08:08 Critical Care Time Critical Care Time Critical Care Time: No Discharge Plan Discharge Clinical Impression: Swelling of upper lip Patient Disposition: Home Condition: Stable Instructions: General Allergic Reaction (ED) Additional Instructions: Take the prednisone as directed. Take it in the morning and take it with food. Take loratadine daily for the next 5 days. Follow-up PCP in 3-5 days. If you develop any worsening redness, swelling, discharge, fevers, breathing problems, Wheezing, vomiting, swelling to to the wrist your face for throat,or any other concerns please go to the ER immediately. Patient Language: Persian Prescriptions: New prednisone 20 mg tablet 40 mg PO DAILY 5 Days Qty: 10 0RF No Action aspirin 81 mg tablet,delayed release (DR/EC) 81 mg PO DAILY multivitamin Tablet 1 tablet PO DAILY cyclobenzaprine 10 mg tablet 10 mg PO TID Qty: 30 1RF amlodipine 10 mg tablet 10 mg PO DAILY Qty: 90 1RF hydrochlorothiazide 25 mg tablet 25 mg PO DAILY Qty: 90 1RF carvedilol [Coreg] 3.125 mg tablet 3.125 mg PO Q12H Qty: 180 1RF Rx Instructions: must administer with a meal/food Follow-up/Referrals: Matt Garcia DO [Primary Care Provider, Internal Medicine] Time of Disposition: 08:28
== END 2025-01-30 08:33 | disposition home or self-care (01) ==
PROVIDERS: PCP Internal Medicine
DX: K13.0 Diseases of lips (principal); I10 Essential (primary) hypertension; Z79.82 Long term (current) use of aspirin
CPT/HCPCS: 99213; G0463